=== PATIENT | male | born 1955 | race Caucasian/White ===

== ENCOUNTER → 2023-11-06 13:31 | Outpatient (REF) | payer OTHER, SELFPAY ==
[2023-11-06 16:13] LABS: Urine Albumin Negative (Neg - Trace); Urine Bilirubin Negative (Negative); Urine Character Clear (Clear); Urine Color Yellow; Urine Glucose 3+ (Negative); Urine Ketone Trace (Negative); Urine Leukocyte Negative (Negative); Urine Nitrite Negative (Negative); Urine Occult Blood Negative (Negative); Urine Urobilinogen Negative (Neg - 1+)
[2023-11-06 16:14] LABS: Hematocrit 45.5 % (39.0-52.0); Hemoglobin 15.2 g/dL (13.0-18.0); Mean Corp Hgb Conc. 33.4 g/dL (33.0-37.0); Mean Corpuscular Hgb 29.9 pg (27.0-31.0); Mean Corpuscular Volume 89.6 fL (80.0-94.0); Mean Platelet Volume 10.4 fL (7.4-10.4); Platelet Count 160 10^3/uL (130-400); Red Blood Cell Count 5.08 10^6/uL (4.70-6.10); Red Cell Dist. Width 12.8 % (11.5-14.5); White Blood Cell Count 7.5 10^3/uL (4.8-10.8)
[2023-11-06 16:29] LABS: INR 1.13; PT 14.5 Sec (11.4-14.6)
[2023-11-06 16:30] LABS: APTT 29.7 Sec (23.4-35.0)
[2023-11-06 16:31] LABS: ALT (SGPT) 23 U/L (0-50); AST (SGOT) 22 U/L (17-59); Albumin 4.4 g/dl (3.5-5.0); Alkaline Phosphatase 86 U/L (38-126); Blood Urea Nitrogen 37 mg/dl (9-20); Calcium 9.7 mg/dl (8.4-10.2); Carbon Dioxide 19 mmol/L (22-30); Chloride 108 mmol/L (98-107); Glucose 101 mg/dl (70-99); Potassium 4.3 mmol/L (3.5-5.1); Sodium 136 mmol/L (135-145); Total Bilirubin 0.6 mg/dl (0.2-1.3); Total Protein 6.9 g/dl (6.3-8.2); eGFR > 60.00
== END ==
LOC: HWRAD 13:31
PROVIDERS: ATTENDING PHYSICIAN Specialist; FAMILY PHYSICIAN Family Medicine
DX: N20.0 Calculus of kidney (principal)
CPT/HCPCS: 36415; 74176; 80053; 81003; 85027; 85610; 85730

== ENCOUNTER 2023-11-20 06:23 | Day surgery (SDC) | payer OTHER, SELFPAY ==
[2023-11-20] VITALS (16 sets, daily range): BP systolic 155–180; BP diastolic 95–107; BMI 28.5
[2023-11-20 08:26] LABS: Glucose - Point of Care 151 mg/dl (70-99)
[2023-11-20] MEDS: NORMOSOL-R 1000 IV (08:49)
[2023-11-20 10:39] LABS: Glucose - Point of Care 138 mg/dl (70-99)
[2023-11-20] MEDS: Pyridium 200 MG PO (10:44)
[2023-11-20] MEDS: SUBLIMAZE 25 MCG IV ×3 (11:08→11:38)
[2023-11-20 13:04] LABS: Glucose - Point of Care 173 mg/dl (70-99)
== END 2023-11-20 13:33 | disposition home or self-care (01) ==
LOC: SDS 06:23
PROVIDERS: ATTENDING PHYSICIAN Specialist
DX: N20.2 Calculus of kidney with calculus of ureter (principal)
CPT/HCPCS: 52356; 74018; 76000; 82962; 93005; C2617

== ENCOUNTER 2024-09-15 02:42 | Inpatient (IN) | payer OTHER, SELFPAY ==
[2024-09-14 19:44] VITALS: BP 160/107
[2024-09-14 20:10] LABS: % Basophils 1.1 % (0-2); % Eosinophils 2.5 % (0-6); % Immature Granulocytes 0.5 % (0-0.5); % Lymphocytes 18.5 % (20.5-51.1); % Monocytes 10.2 % (1.7-9.3); % Neutrophils 67.2 % (42.2-75.2); Absolute Basophils 0.1 10^3/uL (0-0.2); Absolute Eosinophils 0.2 10^3/uL (0-0.7); Absolute Lymphocytes 1.5 10^3/uL (1.2-3.4); Absolute Monocytes 0.8 10^3/uL (0.1-0.6); Absolute Neutrophils 5.3 10^3/uL (1.4-6.5); Hematocrit 46.7 % (39.0-52.0); Hemoglobin 15.6 g/dL (13.0-18.0); Mean Corp Hgb Conc. 33.4 g/dL (33.0-37.0); Mean Corpuscular Hgb 29.4 pg (27.0-31.0); Mean Corpuscular Volume 87.9 fL (80.0-94.0); Mean Platelet Volume 9.6 fL (7.4-10.4); Nucleated Red Blood Cells % 0 % (-); Platelet Count 121 10^3/uL (130-400); Red Blood Cell Count 5.31 10^6/uL (4.70-6.10); White Blood Cell Count 7.9 10^3/uL (4.8-10.8)
[2024-09-14 20:19] LABS: INR 0.99; PT 13.4 Sec (11.4-14.6)
[2024-09-14 21:12] LABS: ALT (SGPT) 25 U/L (0-50); AST (SGOT) 30 U/L (17-59); Albumin 4.7 g/dl (3.5-5.0); Alkaline Phosphatase 98 U/L (38-126); Blood Urea Nitrogen 33 mg/dl (9-20); Calcium 9.2 mg/dl (8.4-10.2); Carbon Dioxide 17 mmol/L (22-30); Chloride 112 mmol/L (98-107); Glucose 144 mg/dl (70-99); Sodium 142 mmol/L (135-145); Total Bilirubin 0.8 mg/dl (0.2-1.3); Total Protein 7.2 g/dl (6.3-8.2); eGFR > 60.00
[2024-09-14 22:45] VITALS: BP 158/98
[2024-09-14 22:47] VITALS: BMI 29.7
[2024-09-14 23:30] LABS: NT-proBNP 1160 pg/ml; Troponin I 0.061 ng/ml
[2024-09-14 23:31] VITALS: BP 164/102
[2024-09-15] VITALS (10 sets, daily range): BP systolic 134–160; BP diastolic 83–106; BMI 29.7
--- NOTE | 2024-09-15 00:21 | ED.GENMED ---
History of Present Illness
General
Chief Complaint: Breathing Problem
Source: patient
Exam Limitations: none
Time Seen by Provider: 09/14/24 22:30
History of Present Illness
History of Present Illness:
69-year-old male with history of clotting disorder, pulmonary embolism and DVTs presents with shortness of breath. Shortness of breath has been made worse with exertion. This has been worsening over the past week or so. He had been on Eliquis.
He had inadvertently forgot or missed take his Eliquis over the past 2 months and he just restarted this 1 week ago. He denies chest pain. He denies any calf discomfort. He is followed by [facility]. He has congenital bicuspid aortic valve
that was replaced twice. No fevers. No chest pain currently. No other complaints at this time. He has a history of CHF and has a defibrillator in his heart as well.
Phy Exam
Physical Exam
Physical Exam:
General: Well-appearing male no acute respiratory distress
HEENT: Normocephalic atraumatic
Heart: Regular rate and rhythm
Lungs: Clear no wheeze
Extremities: No cyanosis or edema
Skin warm no rash
Scores
Heart Failure Risk
Heart Failure Risk Score: Not Applicable
Course
Orders/Labs/Results
Orders:
Orders
09/14/24 19:47
EKG [Electrocardiogram (*1)] Urgent
Reason for Study: Shortness of Breath
09/14/24 19:48
EKG- Treatment ONCE
09/14/24 19:58
Complete Blood Count/With Diff Urgent
Comprehensive Metabolic Panel Urgent
Prothrombin Time Urgent
09/14/24 21:04
Chest [CR Chest - 2 Views ] Urgent
Comment:
Reason For Exam: SOB
09/14/24 22:58
NT-proBNP Urgent
Troponin I Urgent
09/15/24 00:10
CT Chest PE Study Urgent
Reason For Exam: sob, history of PE
09/15/24 00:40
Heparin 8,600 units IV NOW STA
Nursing to Place Non Medication Order As Directed
Physician Order: PTT 6 hours after initial start of Heparin infusion
09/15/24 00:45
Heparin 8,600 units IV PRN PRN
Heparin 12691 Units/250 ml 25,000 units in 250 ml IV PER PROTOCOL
Weight to be used for heparin protocol in kilograms (kg):: 107.7
Protocol:: DVT/PE
PTT Goal Range to be used:: PTT 73 to 111 seconds
Order type:: Initial
INITIAL Infusion Dose (UNITS/KG/hr) & then follow protocol:: 18 units/kg/hr
Infusion Dose in UNITS/hr & then follow protocol (UNITS/hr):: 1,900
INFUSION RATE in mL/hr & then follow protocol (mL/hr):: 19
For DVT/PE algorithm, re-bolus for low PTT?: Yes
PTT less than or equal to 64 seconds:: Re-bolus 80 units/kg (max 10,000units). Increase by 400 units/hr
(+ 4mL/hr)
PTT 64.1 to 72.9 seconds:: Re-bolus 40 units/kg (max 5,000 units). Increase by 200 units/hr
(+ 2mL/hr)
PTT 73 to 111 seconds:: Target Range. No change in rate.
PTT 111.1 to 130.9 seconds:: Decrease rate by 200 units/hr (- 2 mL/hr)
PTT 131 to 199.9 seconds:: HOLD for 1 hr. Then decrease by 300 units/hr (- 3mL/hr)
PTT greater than or equal to 200 seconds:: HOLD for 2 hrs & Notify Provider. Then decrease by 400 units/hr
(- 4mL/hr)
Lab follow-up:: Each change, PTT q6h until 2 consecutive are therapeutic. Then
PTT daily.
09/15/24 00:46
Heparin 4,300 units IV PRN PRN
09/15/24 00:54
PTT Urgent
Comment: Obtain baseline before beginning heparin infusion if not already collected
Troponin I Urgent
Abnormal Lab Results
09/14/24 09/14/24
19:58 22:58
Plt Count 121 L 10^3/uL
(130-400)
Absolute Monos (auto) 0.8 H 10^3/uL
(0.1-0.6)
Lymphocytes % 18.5 L %
(20.5-51.1)
Monocytes % 10.2 H %
(1.7-9.3)
Chloride 112 H mmol/L
(98-107)
Carbon Dioxide 17 L mmol/L
(22-30)
BUN 33 H mg/dl
(9-20)
Glucose 144 H mg/dl
(70-99)
Troponin I 0.061 H* ng/ml
09/14/24 19:58
09/14/24 19:58
Vital Signs
Initial and Last Documented VS:
Initial Vital Signs
Temp Pulse Resp BP Pulse Ox
98.5 F 82 18 160/107 97
09/14/24 19:44 09/14/24 19:44 09/14/24 19:44 09/14/24 19:44 09/14/24 19:44
Last Documented Vital Signs
Temp Pulse Resp BP Pulse Ox
98.5 F 76 16 164/102 96
09/14/24 19:44 09/14/24 23:45 09/14/24 23:45 09/14/24 23:31 09/14/24 23:45
MDM/Problems Addressed
Differential Diagnosis Includes:
Patient with shortness of breath with exertion. Consider CHF versus PE versus ACS versus pneumonia
Chest x-ray ordered through triage is negative however given history of clotting disorder and pulmonary embolisms and lack of anticoagulation over the past 2 months PE study ordered. EKG ordered which shows a paced rhythm troponin is slightly
elevated at 0.061.
*Critical Care Note
Total Time (30-74mins, 75-104mins- exclusive of procedures): Not Applicable
Update Note
Update Note:
Troponin slightly bumped at 0.061. PE study positive for bilateral pulmonary embolism.. The clot burden is moderate to large. There is a right mainstem pulmonary embolism there is no evidence of heart strain. Vital signs remained stable. He is
not hypoxic. Will heparinize patient and admit. Discussed with emergency room attending
ED Attending Note
-
Portions of this chart may have been created with voice recognition software.� Occasional wrong word or��sound alike� substitutions may have occurred due to the inherent limitations of voice recognition software.
Discharge Plan
Departure
Patient Disposition: Admit
Date of Disposition: 09/15/24
Time of Disposition: 01:06
Presentation/result/management discussed w/ accepting MD/DO: Hospitalist
Discharge Problem:
Pulmonary embolism
Prescriptions:
No Action
atorvastatin 20 mg Tablet
20 mg PO HS
metoprolol succinate 100 mg Tablet Extended Release 24 Hr
100 mg PO DAILY
metformin 850 mg Tablet
850 mg PO BID
paroxetine HCl 20 mg Tablet
20 mg PO DAILY
eplerenone 25 mg Tablet
25 mg PO DAILY
Eliquis 5 mg Tablet
5 mg PO BID
Jardiance 10 mg Tablet
10 mg PO DAILY
Nutrafol
1 tab PO DAILY
Patient Comments:
Hair growth medication
Zyrtec
1 tab PO DAILY
sacubitril-valsartan [Entresto] 49-51 mg Tablet
1 tab PO BID
Referrals:
Romain Maza DO [Family Provider] -
Interventions
Interventions:
*Risk Screen - Suicide Last Done: 09/14/24 19:44
*General Assessment Last Done: 09/14/24 19:44
*Neglect/Abuse Screening Last Done: 09/14/24 22:47
ED- Fall Risk Assessment Last Done: 09/14/24 23:30
*ED COVID-19 Vaccine History Last Done: 09/14/24 19:44
ED- Cardiac Assessment Last Done: 09/14/24 23:30
ED- Pulmonary Assessment Last Done: 09/14/24 23:30
Discharge Date and Time
Print Language: ALBANIAN
[2024-09-15] MEDS: HEPARIN 8600 UNITS IV (01:09)
[2024-09-15] MEDS: HEPARIN 25000 UNITS/250 ML IV (01:10)
[2024-09-15 01:15] LABS: APTT 29.4 Sec (23.4-35.0)
[2024-09-15 01:28] LABS: Troponin I 0.072 ng/ml
--- NOTE | 2024-09-15 02:33 | HPS.HSE ---
Family Physician
-
Family Physician: Romain Maza
Chief Complaint
-
SOB
History of Present Illness
Patient is a 69y M with PMH significant for hypertension, CHF, DM-II and coagulopathy who presents to ED complaining of SOB x 3 days. Patient has prior h/o DVT/PE and has been diagnosed with congenital hypercoagulable state (? which). He states
that he stopped his Eliquis about 2 months ago due to cost reasons. He traveled to [place] this past week with his - drove there. They went to [place] last Saturday and returned home today. Fazal noted some increasing SOB with activity over the
past 3 days. He denies any chest pain, palpitations, lightheadedness or dizziness.
This evening upon returning home he climbed a flight of stairs carrying a suitcase and felt extremely SOB.
He presented to the ED for further evaluation.
Work-up here reveals bilateral pulmonary emboli.
Medical History
Past Medical History
Past Medical History: Reports Other
Additional Past Medical History:
Hypertension
DM-II
Hypercoagulable State
History of RLE DVT / PE
Bicuspid Aortic Valve
CHF Unknown Type
DDD
Drop Foot (RLE)
Past Surgical History: Reports Other
Additional Past Surgical History:
AVR x 2
TAVR (failed)
AICD Placement
Back Surgery
Social History
Tobacco: Non-smoker
Alcohol: None
Drug: None
Family History
Family History: Other (Father: Hypercoagulable State)
Allergies / Home Medications
Allergies reflects when Allergies were last updated in [facility] [employer].
Home Medications with original date entered in [employer]
Allergy/Medication List:
Allergies
Allergy/AdvReac Type Severity Reaction Status Date / Time
sulfamethoxazole Allergy Mild Unknown Verified 09/14/24 19:47
[From Bactrim]
trimethoprim [From Bactrim] Allergy Unknown Verified 09/14/24 19:47
Home Medications
apixaban 5 mg tablet (Eliquis) 5 mg PO BID 11/14/23 - Not taking x 2 months.
atorvastatin 20 mg tablet 20 mg PO HS 11/14/23
empagliflozin 10 mg tablet (Jardiance) 10 mg PO DAILY 11/14/23
eplerenone 25 mg tablet 25 mg PO DAILY 11/14/23
metformin 850 mg tablet 850 mg PO BID 11/14/23
metoprolol succinate 100 mg tablet,extended release 24 hr 100 mg PO DAILY 11/14/23
paroxetine HCl 20 mg tablet 20 mg PO DAILY 11/14/23
Nutrafol 1 tab PO DAILY 11/20/23
Zyrtec 1 tab PO DAILY 09/14/24
sacubitril 49 mg-valsartan 51 mg tablet (Entresto) 1 tab PO BID 09/14/24
Review of Systems
-
History Source: Patient
A 12 point ROS was completed and negative except as noted: Yes
Constitutional: Reports Fatigue; Denies Fever or Chills
Respiratory: Reports Trouble Breathing; Denies Cough
Cardiac: Denies Chest Pain, Diaphoresis, Palpitations or Syncope
Abdomen/GI: Denies Abdominal Pain, Nausea, Vomiting or Diarrhea
: Denies Dysuria or Frequency
Musculoskeletal: Denies Joint Pain or Edema
Neurological: Denies Dizzy or Headache
Psych: Denies Depression or Anxiety
Physical Exam
Vital Signs
Vital Signs
Temp Pulse Resp BP Pulse Ox
98.5 F 75 16 153/106 96
09/14/24 19:44 09/15/24 01:00 09/15/24 01:00 09/15/24 01:00 09/15/24 01:00
Physical Exam
General: Other (69y M in no acute distress.)
HEENT: Moist mucous membranes and PERRLA
Respiratory: Clear; No Wheezes, Rales or Rhonchi
Cardiac: S1/S2 and Regular Rhythm; No Murmur
GI: Soft, Non Tender, Non Distended and Normal Bowel Sounds
Musculoskeletal: No Clubbing, No Cyanosis and Other (RLE edema - patient states this is chronic / unchanged since prior DVT episode.)
Neuro: AO x 3
Laboratory Results
-
09/14/24 19:58
09/14/24 19:58
Laboratory Results
PT 13.4 Sec (11.4-14.6) 09/14/24 19:58
INR 0.99 09/14/24 19:58
APTT 29.4 Sec (23.4-35.0) 09/15/24 00:54
Total Bilirubin 0.8 mg/dl (0.2-1.3) 09/14/24 19:58
AST 30 U/L (17-59) 09/14/24 19:58
ALT 25 U/L (0-50) 09/14/24 19:58
Alkaline Phosphatase 98 U/L (38-126) 09/14/24 19:58
Troponin I 0.072 ng/ml H* 09/15/24 00:54
Impression/Plan
-
A/P: Patient is a 69y M with PMH significant for DM-II, HTN, CHF and prior DVT / PE who presents to ED complaining of 3 days of worsening SOB.
Bilateral Pulmonary Emboli
Hypercoagulable State
- Admit for further evaluation and treatment.
- Patient with multiple, bilateral PE seen on CT.
- No evidence of RV strain. Vitals / oxygenation / etc all adequate.
- Underlying hypercoagulable state, lack of medication and recent road trip likely contributed to current presentation.
- IV heparin x 24-48 hours.
- Check Echo.
- Case management evaluation to review affordable oral anticoagulation options.
- Pulmonary evaluation.
- Check LE Dopplers for completeness.
Bicuspid Aortic Valve s/p AVR
Cardiomyopathy
Chronic HF - Unknown Type (suspected HFrEF)
- Stable. Continue current CV medication regimen with holding parameters for BP meds.
- Follow I/Os, daily weights, etc.
- Update Echo as noted above.
DM-II
- Stable. Continue current med regimen.
- Follow glucose and cover with SSI as needed.
- Update A1C.
DVT Prophylaxis: On IV Heparin
Code Status: Full
[2024-09-15 04:24] LABS: Troponin I 0.071 ng/ml
[2024-09-15 07:01] LABS: Blood Urea Nitrogen 26 mg/dl (9-20); Calcium 9.3 mg/dl (8.4-10.2); Carbon Dioxide 22 mmol/L (22-30); Chloride 114 mmol/L (98-107); Estimated Creatinine Clearance 66 ml/min; Glucose 134 mg/dl (70-99); Potassium 3.8 mmol/L (3.5-5.1); Sodium 145 mmol/L (135-145); eGFR > 60.00
[2024-09-15 07:52] LABS: APTT 136.9 Sec (23.4-35.0)
[2024-09-15] MEDS: FARXIGA 10 MG PO (08:36)
[2024-09-15] MEDS: ENTRESTO 49 MG/51 MG 1 TAB PO ×2 (08:41→20:53)
[2024-09-15] MEDS: TOPROL XL 100 MG PO (08:41)
[2024-09-15] MEDS: PAXIL 20 MG PO (08:41)
[2024-09-15] MEDS: INSPRA 25 MG PO (08:42)
[2024-09-15 08:44] LABS: Troponin I 0.074 ng/ml
[2024-09-15 08:56] LABS: Glucose - Point of Care 124 mg/dl (70-99)
[2024-09-15 09:14] LABS: Glycohemoglobin (HgbA1c) 6.6 % (4.0-5.6)
--- NOTE | 2024-09-15 09:57 | CM ---
CM consult for anticoagulation coverage
Call to [facility] [phone]
Eliquis 10 mg BID 7 days (no insurance coverage for 10 mg)
5 mg QID 7 days- $67.99 retail
5 mg BID 30 day retail- $145.48 and 90 day mail order $405
No prior auth required for starter pack of 5 mg (74 tabs)
Of note, can't fill Eliquis script until 10/01
Xarelto 15 mg BID 21 days- $200.84 retail
10 mg QD or 20 mg QD 30 day retail- $143.51 and 90 day mail order $399.92
Quantity limit of 2 starter packs (51 tabs/pack)/102 tabs within 365 days)
No prior auth required
TT/Dr Thomas
--- NOTE | 2024-09-15 10:25 | W.PN.HOSP.TC ---
Today's Communication/Plan
-
See plan
Assessment / Plan
Assessment / Plan
Impression:
Patient is a 69y M with PMH significant for DM-II, HTN, CHF and prior DVT / PE who presents to ED complaining of 3 days of worsening SOB.
Acute bilateral pulmonary emboli/right lower extremity DVT
Underlying hypercoagulable state unspecified
Other conditions:
Bicuspid aortic valve status post AVR.
Cardiomyopathy baseline chronic CHF unknown type.
Diabetes type 2
Plan:
Bilateral pulmonary emboli/right lower extremity DVT with underlying hypercoagulable state
Patient reports interruption with Eliquis administration due to cost.
Presents hemodynamically stable with no evidence of hypoxia.
CT findings consistent with bilateral PE and no evidence of RV strain.
Initiated on IV heparin with plan to transition to Eliquis.
Case management consultation for colostomy assistance per
Echocardiogram baseline pulmonology evaluation
Home O2 evaluation
Bicuspid Aortic Valve s/p AVR
Cardiomyopathy
Chronic HF - Unknown Type (suspected HFrEF)
- Stable. Continue current CV medication regimen with holding parameters for BP meds.
- Follow I/Os, daily weights, etc.
- Update Echo as noted above.
DM-II
- Stable. Continue current med regimen.
- Follow glucose and cover with SSI as needed.
- Update A1C.
DVT Prophylaxis: On IV Heparin
Code Status: Full
Anticipated Discharge: Within 24 hours
Subjective/Interval History
-
Date of Service: September 15, 2024
Objective Data
-
Labs:
Laboratory Results
09/15/24 09/15/24 09/15/24
00:54 06:31 15:00
APTT 29.4 136.9 H Pending
Sodium 145
Potassium 3.8
Chloride 114 H
Carbon Dioxide 22
BUN 26 H
Creatinine 1.3
Glucose 134 H
Calcium 9.3
Vital Signs:
Vital Signs
Temp Pulse Resp BP Pulse Ox
98.5 F 77 20 158/99 98
09/14/24 19:44 09/15/24 07:07 09/15/24 07:07 09/15/24 06:27 09/15/24 07:07
I&O
09/14/24 09/15/24 09/16/24
06:59 06:59 06:59
Output Total 650 / 650
Balance -650 / -650
Physical Exam
-
General: Well Developed and No Apparent Distress
HEENT: Normocephalic, Atraumatic and Moist Mucous Membranes
Respiratory: Clear to Auscultation
Cardiac: Regular Rhythm and S1/S2; Negative Murmur, Rub or Gallop
GI: Soft, Nontender, Nondistended and Normal Bowel Sounds; Negative Organomegaly
Rectal: Deferred by Provider
Musculoskeletal: No Clubbing, No Cyanosis and No Edema
Skin: Negative Rash
Neuro: Nonfocal/Grossly Intact
[2024-09-15] MEDS: ELIQUIS 5 MG PO ×2 (11:16→20:53)
--- NOTE | 2024-09-15 11:18 | CM ---
CM met with pt bedside
Pt resides with his SO/[place] in a 2 SH with 3 TIFFANY, 14 steps to 2nd floor
Pt is typically independent with his ADls
He has a WW that he uses PRN due to drop foot
He has a cpap at home and prior hx with home O2, no current set up in home
CPAP provider known
SO will be bring cpap to hospital later today and will provide provider name
Pt notes difficulties with script coverage due to donut hole
[facility] provided pt with Eliquis assistance brochure
[facility]/Jardiance assistance programs also provided to pt as he noted high copays with those meds as well
Home O2 eval order placed and pending
Discharge Disposition- home, watch for home O2 needs
--- NOTE | 2024-09-15 11:22 | CON.PUL ---
Consultation
Consultation Request
Date/Time Consultation Requested: 09/15/2024
Date/Time Consultation Performed: 09/15/2024
Requesting Provider: Dr. Thomas
Performing Provider: Dr. Haile Munguia
Reason for Consultation: Acute pulmonary embolism
Medical History
-
History of Present Illness:
This 69-year-old male with past medical history significant for hypertension, heart failure unknown type, type 2 diabetes, presented to [facility] complaining of shortness of breath for 3 days. Patient reports prior history of DVT/PE and has
been diagnosed with a congenital hypercoagulable state-no details available. Patient stopped taking Eliquis about 2 months ago due to cost/affordability.
Patient last week drove to [place]. Came back home on 09/14/2024. Reported increased shortness of breath with activity for the last 3 days. Denies syncope, palpitation, lightheadedness or exertional chest pain.
Patient developed significant shortness of breath after climbing his stairs at home with his suitcase.
Presented to the emergency room for evaluation.
CT angiogram demonstrated bilateral pulmonary embolism.
Past Medical History
Past Medical History: Other (See assessment and plan)
Social History
Tobacco: Non-smoker
Alcohol: None
Drug: None
Employment: Retired
Family History
Family History: Other (Father with hypercoagulable state-unclear details)
Allergies / Home Medications
Allergies
Allergy/AdvReac Type Severity Reaction Status Date / Time
sulfamethoxazole Allergy Mild Unknown Verified 09/14/24 19:47
[From Bactrim]
trimethoprim [From Bactrim] Allergy Unknown Verified 09/14/24 19:47
Home Medications
�Medication �Instructions �Recorded �Confirmed �Last Taken �Type
apixaban 5 mg tablet (Eliquis) 5 mg PO BID 11/14/23 09/14/24 11/19/23 09:00 History
atorvastatin 20 mg tablet 20 mg PO HS 11/14/23 09/14/24 11/18/23 21:00 History
empagliflozin 10 mg tablet 10 mg PO DAILY 11/14/23 09/14/24 2 Days Ago History
(Jardiance) ~11/18/23
eplerenone 25 mg tablet 25 mg PO DAILY 11/14/23 09/14/24 11/19/23 09:00 History
metformin 850 mg tablet 850 mg PO BID 11/14/23 09/14/24 11/19/23 09:00 History
metoprolol succinate 100 mg 100 mg PO DAILY 11/14/23 09/14/24 11/19/23 09:00 History
tablet,extended release 24 hr
paroxetine HCl 20 mg tablet 20 mg PO DAILY 11/14/23 09/14/24 11/19/23 09:00 History
Nutrafol 1 tab PO DAILY 11/20/23 09/14/24 11/19/23 17:00 History
Zyrtec 1 tab PO DAILY 09/14/24 09/14/24 Unknown History
sacubitril 49 mg-valsartan 51 mg 1 tab PO BID 09/14/24 09/14/24 Unknown History
tablet (Entresto)
Review of Systems
-
History Source: Patient
All other systems: Negative unless noted
Vitals / Labs / Diagnostic Testing
Vital Signs
Temp Pulse Resp BP Pulse Ox
98.5 F 77 20 158/99 98
09/14/24 19:44 09/15/24 07:07 09/15/24 07:07 09/15/24 06:27 09/15/24 07:07
Lab Data
09/14/24 19:58
09/15/24 06:31
Laboratory Results
09/14/24 09/15/24 09/15/24
19:58 00:54 06:31
PT 13.4
INR 0.99
APTT 29.4 136.9 H
09/15/24
15:00
PT
INR
APTT Cancelled
Diagnostic Testing:
Physical Exam
-
HEENT: Normocephalic
Cardiovascular: S1/S2
Respiratory: Non-Labored Respirations
GI: Soft and Non Distended
Neurology: Awake, AO x 3 and No Motor Deficits
Skin: Warm
General: Comfortable
Assessment
-
69-year-old male with past medical history noted. Supposed to be on chronic anticoagulation for history of DVT/PE and hypercoagulable state. Interrupted anticoagulation few months ago due to cost. Recently traveled to [place] and returned home
09/14/2024 and developed shortness of breath over the last 2 to 3 days. We were consulted on 09/15/2024 for evaluation.
Acute bilateral pulmonary embolism-hypercoagulable state
Provoked by traveling
CT angiogram: Reviewed, showed moderate volume bilateral pulmonary embolism extending from the distal main pulmonary arteries into the lower segment and subsegmental pulmonary arterial branches. No evidence for RV strain. Mild cardiomegaly. No
additional abnormalities.
Lower extremity Dopplers 09/15/2024: Occlusive thrombus within the distal right femoral vein as well as throughout the right popliteal, peroneal and posterior tibial veins. No evidence of deep venous thrombosis in the left lower extremity.
Mild troponin leak
Elevated proBNP 1160
EKG 09/15/2024: Ventricular paced rhythm. Abnormal EKG.
Condition present prior admission:
History of DVT/PE-history of hypercoagulable state-stopped taking Eliquis few months ago due to cost
History of bicuspid aortic valve status post AVR
Pacemaker in place-ICD.
History of cardiomyopathy unknown LVEF
Type 2 diabetes
Assessment and plan:
Acute bilateral pulmonary embolism with right lower extremity DVT-likely provoked by interruption of anticoagulation with underlying hypercoagulable state in the setting of car ride to [place].
Not tachycardic
Not hypotensive
Not hypoxemic.
-
Patient stopped anticoagulation due to cost
Agree with heparin drip, with mild increased troponins and proBNP high risk features-restarted Eliquis this morning. Monitor for bleeding. He will continue this indefinitely.
Patient states that he follows cardiology and pulmonary at [facility].
Agree with echocardiogram given increased proBNP/cardia biomarkers-evaluate RV function.
May gradually increase ambulation pending echocardiogram
Continue telemetry monitoring
Patient is eager to go home.
Ideally we will keep until tomorrow morning but he would like to go this afternoon, with discharge only if RV function is completely normal.
Discussed with primary team and with patient.
-
Will follow.
-
He will follow-up at [facility] with pulmonary and cardiology upon discharge
[2024-09-15 12:56] LABS: Glucose - Point of Care 134 mg/dl (70-99)
[2024-09-15 15:10] LABS: Troponin I 0.059 ng/ml
[2024-09-15 16:51] LABS: Glucose - Point of Care 131 mg/dl (70-99)
--- NOTE | 2024-09-15 17:00 | CON.CAR ---
Consultation
Consultation Request
Date/Time Consultation Requested: September 15, 2024
Date/Time Consultation Performed: September 15, 2024
Requesting Provider: hospitalist
Performing Provider: Delano Neves
Reason for Consultation: shortness of breath, pulmonary embolism, tricuspid valve thrombus
Medical History
-
Chief Complaint: shortness of breath, accelerated over 3 days
History of Present Illness:
He has a complex medical history which includes heart failure with reduced ejection fraction, prior tissue AVR,, [employer]INE[employer]ING [employer]ER-D, hypertension, type 2 diabetes, hypercoagulable state, prior DVT and PEs. He presented to [facility] with 3 days of
worsening shortness of breath. Over the past 2 months he has not taken oral anticoagulation. Recent car ride from [email or web address].He had been on Eliquis but reports that he could not afford the drug. Evaluation at [facility] has diagnosed him with
bilateral pulmonary embolism as well as DVT.
Echocardiogram was obtained and finds mobile echodensity seen on the tricuspid valve at the approximate location of ICD lead interface with the valve, the echodensity measures 2.9 cm.
Cardiology consultation is requested given the new finding of the mobile echodensity on the tricuspid valve.
ECHO 09/15/24:
Moderately reduced left ventricular systolic function. Left ventricular ejection fraction is 40%. Global hypokinesis.
RV size and function is normal
Mobile echodensity seen on the tricuspid valve at the approximate location of ICD lead interface with the valve, the echodensity measures 2.9 cm.
There is no significant tricuspid regurgitation or stenosis
AVR with peak/mean gradients across the aortic valve at 23/13 mmHg. No aortic regurgitation
Chest CTA 09/15/24:
Moderate volume bilateral pulmonary artery extending from the distal main pulmonary arteries into the lobar segmental and subsegmental pulmonary arterial branches.
No pulmonary edema
Peripheral vascular ultrasound 09/15/24:
Occlusive thrombus within the distal right femoral vein as well as throughout the right popliteal, peroneal and posterior tibial veins.
ECG 09/15/24:
Dual-chamber pacing with biventricular pacing
Labs:
Borderline elevated but stable troponin values between point0.059 and 0.074 (mots recent is trended downward)
proBNP 1160
Past medical history:
Primary sourcing consultant is Dr. Carson Christie ([facility])
- Prior PE and DVT
- Hypercoagulable state
- Noncompliance with oral anticoagulation (inability to afford?)
- Heart failure with reduced ejection fraction
- ENGINEERING OFFICER defibrillator
- Prior tissue AVR
Tissue AVR at [facility] 2007
TAVR [facility] 2022 -> Need for emergent transfer and re-op at [facility] for tissue AVR
- Diabetes mellitus type 2
Social History
Tobacco: Non-Smoker
Drug: None
Employment: Retired
Family History
Family History: Other ( hypercoagulable state with uncertain details)
Allergies / Home Medications
Allergy/AdvReac Type Severity Reaction Status Date / Time
sulfamethoxazole Allergy Mild Unknown Verified 09/14/24 19:47
[From Bactrim]
trimethoprim [From Bactrim] Allergy Unknown Verified 09/14/24 19:47
�Medication �Instructions �Recorded �Confirmed �Type
apixaban 5 mg tablet (Eliquis) 5 mg PO BID 11/14/23 09/14/24 History
atorvastatin 20 mg tablet 20 mg PO HS 11/14/23 09/14/24 History
empagliflozin 10 mg tablet 10 mg PO DAILY 11/14/23 09/14/24 History
(Jardiance)
eplerenone 25 mg tablet 25 mg PO DAILY 11/14/23 09/14/24 History
metformin 850 mg tablet 850 mg PO BID 11/14/23 09/14/24 History
metoprolol succinate 100 mg 100 mg PO DAILY 11/14/23 09/14/24 History
tablet,extended release 24 hr
paroxetine HCl 20 mg tablet 20 mg PO DAILY 11/14/23 09/14/24 History
Nutrafol 1 tab PO DAILY 11/20/23 09/14/24 History
Zyrtec 1 tab PO DAILY 09/14/24 09/14/24 History
sacubitril 49 mg-valsartan 51 mg 1 tab PO BID 09/14/24 09/14/24 History
tablet (Entresto)
Review of Systems
-
History Source: Patient
All other systems: Negative unless noted
Constitutional: No Symptoms
EENT: No Symptoms
Respiratory: Trouble Breathing ( accelerated over the past 3 days)
Cardiac: No Symptoms
Abdomen/GI: No Symptoms
: No Symptoms
Musculoskeletal: Edema ( right lower extremity edema)
Skin: No Symptoms
Neurological: No Symptoms
Endocrine: No Symptoms
Hematologic/Lymphatic: No Symptoms
Physical Exam
Vital Signs
Temp Pulse Resp BP Pulse Ox
98.1 F 74 16 137/83 95
09/15/24 15:29 09/15/24 15:29 09/15/24 15:29 09/15/24 15:29 09/15/24 15:29
Lab Results
09/14/24 19:58
09/15/24 06:31
Troponin I 0.059 ng/ml H* 09/15/24 14:28
Tmf-[id number] Pept 1160 pg/ml 09/14/24 22:58
Physical Exam
General: Well Developed, Well Nourished, No Apparent Distress and Comfortable
HEENT: Normocephalic, Anicteric and Moist Mucous Membranes
Respiratory: Clear and Non Labored Respirations
Cardiac: S1/S2 ( No S3 and no S4.), Regular Rhythm and Murmur ( 1/6 basal systolic ejection murmur with no rub.)
Breast: Deferred by me
GI: Soft, Non Tender, Non Distended and Normal Bowel Sounds
Rectal: Deferred by Provider
Musculoskeletal: No Clubbing, No Cyanosis and Edema ( There is +1 right lower extremity edema)
Skin: Warm and Dry
Neuro: Awake, Alert, Oriented and AO x 3
Psych: Calm
Impression / Plan
-
Primary sourcing consultant is Dr. Carson Christie ([facility])
Assessment:
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
- Non-VT troponin elevation related to acute pulmonary embolism
- Prior PE and DVT
- Hypercoagulable state
- Noncompliance with oral anticoagulation (inability to afford?)
- Heart failure with reduced ejection fraction
- ENGINEERING OFFICER defibrillator
- Prior tissue AVR
Tissue AVR at [facility] 2007
TAVR [facility] 2022 -> Need for emergent transfer and re-op at [facility] for tissue AVR
- Diabetes mellitus type 2
Data:
- ECHO 09/15/24:
Moderately reduced left ventricular systolic function. Left ventricular ejection fraction is 40%. Global hypokinesis.
RV size and function is normal
Mobile echodensity seen on the tricuspid valve at the approximate location of ICD lead interface with the valve, the echodensity measures 2.9 cm.
There is no significant tricuspid regurgitation or stenosis
AVR with peak/mean gradients across the aortic valve at 23/13 mmHg. No aortic regurgitation
- Chest CTA 09/15/24:
Moderate volume bilateral pulmonary artery extending from the distal main pulmonary arteries into the lobar segmental and subsegmental pulmonary arterial branches.
No pulmonary edema
- Peripheral vascular ultrasound 09/15/24:
Occlusive thrombus within the distal right femoral vein as well as throughout the right popliteal, peroneal and posterior tibial veins.
- ECG 09/15/24:
Dual-chamber pacing with biventricular pacing
- Labs:
Borderline elevated but stable troponin values between point0.059 and 0.074 (mots recent is trended downward)
proBNP 1160
Recommendations:
Regarding his intracardiac thrombus, this is related to his overall hypercoagulable pathology and possibly an extension from his deep venous thrombosis.
There is no mechanical disruption of tricuspid valve function.
Acute treatment with anticoagulation (Heparin -> DOAC)
Chronic treatment to involve uninterrupted oral anticoagulation
He tells me he will be able to afford Eliquis long-term.
There is no cardiac indication for any intervention other than initiating and maintaining oral anticoagulation
Eventual reechocardiogram after 2 to 3 months of uninterrupted oral anticoagulation. This can be done via his primary sourcing consultant, Dr. Christie, as patient follows with him routinely.
Regarding heart failure with reduced ejection fraction, patient tells me that he believes his ejection fraction has been right around 40% but we do not yet have records for review. While his proBNP is mildly elevated this is most likely related to
some degree of right ventricular strain from pulmonary embolism. He does not have pulmonary edema on chest x-ray and I would be concerned about diuresing him aggressively given recent pulmonary embolism, although there is normal right ventricular
size and function.
At this point I would simply maintain him on his current diuretic outpatient regimen
Regarding his tissue AVR, there is normal function of the tissue AVR by echocardiogram today.
He should continue his routine valve assessment with his outpatient sourcing consultant.
He does have ENGINEERING [employer] defibrillator. There is no reason to suspect any malfunction. EKG shows the expected dual-chamber pacing.
He does not require interrogation of the defibrillator at present.
Okay for discharge from a cardiology standpoint at any point once okay with primary service and pulmonary
Will sign off, please call us back if we can be of any further assistance.
Total time spent today was 80 minutes in preparing to see the patient, seeing the patient and coordination of care. This included review of recent laboratory evaluations, cardiact testing, imaging studies, primary care rtecords, specialty
consultations, hospital records, as well as personally interviewing and examining the patient, which included discussion of their tests, review/ordering medications, and communicating with other healthcare professionals and also treatment planning
as well as counseling.
Data Reviewed
-
EKG: Tracing Personally Visualized and interpreted
Radiology: Image Personally Visualized and interpreted
CT Scan: Report Reviewed by me
Ultrasound: Report Reviewed by me
Labs: Labs Reviewed by me
Old Records: Requested
Total Time Spent with Patient (in minutes): 80
[2024-09-15] MEDS: LIPITOR 20 MG PO (20:54)
[2024-09-15 22:09] LABS: Glucose - Point of Care 136 mg/dl (70-99)
[2024-09-16 03:31] VITALS: BP 143/89
[2024-09-16 04:35] VITALS: BMI 28.1
[2024-09-16 07:05] VITALS: BP 164/110
[2024-09-16 07:53] LABS: Glucose - Point of Care 152 mg/dl (70-99)
[2024-09-16] MEDS: PAXIL 20 MG PO (09:28)
[2024-09-16] MEDS: TOPROL XL 100 MG PO (09:28)
[2024-09-16] MEDS: ELIQUIS 5 MG PO (09:28)
[2024-09-16] MEDS: ENTRESTO 49 MG/51 MG 1 TAB PO (09:29)
[2024-09-16] MEDS: INSPRA 25 MG PO (09:29)
[2024-09-16] MEDS: FARXIGA 10 MG PO (09:29)
--- NOTE | 2024-09-16 09:30 | W.DS.TRANS ---
DC Summary - [place]
-
Discharge Instructions:
Discharge Diagnosis/Procedures Acute PE?DVT
Diet Diabetic, Carb Controlled
Instructions:
Stand-Alone Forms:
Changes to Home Medications: No
Discharge Medications:
DC Medications w/original date entered in [facility]
apixaban 5 mg tablet (Eliquis) 5 mg PO BID 11/14/23
atorvastatin 20 mg tablet 20 mg PO HS 11/14/23
empagliflozin 10 mg tablet (Jardiance) 10 mg PO DAILY 11/14/23
eplerenone 25 mg tablet 25 mg PO DAILY 11/14/23
metformin 850 mg tablet 850 mg PO BID 11/14/23
metoprolol succinate 100 mg tablet,extended release 24 hr 100 mg PO DAILY 11/14/23
paroxetine HCl 20 mg tablet 20 mg PO DAILY 11/14/23
Nutrafol 1 tab PO DAILY 11/20/23
Zyrtec 1 tab PO DAILY 09/14/24
sacubitril 49 mg-valsartan 51 mg tablet (Entresto) 1 tab PO BID 09/14/24
Home Medication Changes
Patient had interruption in anticoagulation therapy prior to presentation. Had resumed Eliquis day prior to current presentation. Will be continued on Eliquis for acute PE and LE DVT at the preadmission dose with no indication for loading dose.
Pending Results: No
--- NOTE | 2024-09-16 10:11 | CM ---
CM reviewed medical records. Plan for discharge today. No further needs noted.
PLAN: Home
[2024-09-16 11:23] VITALS: BP 150/90
== END 2024-09-16 11:46 | disposition home or self-care (01) | DRG 299 ==
LOC: 1 ACUTE 02:42
PROVIDERS: Emergency Medicine; Physician Assistant; ADMITTING PHYSICIAN Hospitalist; ATTENDING PHYSICIAN Internal Medicine; EMERGENCY PHYSICIAN Emergency Medicine; FAMILY PHYSICIAN Family Medicine; OTHER PHYSICIAN Internal Medicine Cardiovascular Disease; OTHER PHYSICIAN Internal Medicine Critical Care Medicine
DX: I82.411 Acute embolism and thrombosis of right femoral vein (principal); I26.99 Other pulmonary embolism without acute cor pulmonale; I50.22 Chronic systolic (congestive) heart failure; D68.59 Other primary thrombophilia; I42.9 Cardiomyopathy, unspecified; I82.451 Acute embolism and thrombosis of right peroneal vein; I82.431 Acute embolism and thrombosis of right popliteal vein; I82.441 Acute embolism and thrombosis of right tibial vein; I51.3 Intracardiac thrombosis, not elsewhere classified; E11.9 Type 2 diabetes mellitus without complications; I10 Essential (primary) hypertension; T45.516A Underdosing of anticoagulants, initial encounter; Z91.120 Patient's intentional underdosing of medication regimen due to financial hardship; Z95.810 Presence of automatic (implantable) cardiac defibrillator; Z88.2 Allergy status to sulfonamides; Z88.1 Allergy status to other antibiotic agents; Z83.2 Family history of diseases of the blood and blood-forming organs and certain disorders involving the immune mechanism; Z79.899 Other long term (current) drug therapy; Z95.2 Presence of prosthetic heart valve; Z79.01 Long term (current) use of anticoagulants; Z79.84 Long term (current) use of oral hypoglycemic drugs
CPT/HCPCS: 71046; 71275; 80048; 80053; 82962; 83036; 83880; 84484; 85025; 85610; 85730; 93005; 93306; 93970; 96374; 99285; Q9967